=== PATIENT | male | born 2000 | race Asian ===

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

== ENCOUNTER 2019-05-30 08:32 | Emergency (ER) | payer BC ==
--- OUTSIDE RECORDS SUMMARY | 2019-05-30 08:40 | XMS REPORT | Summary of Care ---
:2000 Author Organization [facility] Address [address] [place] [address] Care Team Providers Name Role Phone Bri Lindsey MD Primary Care Provider Reason for Visit Reason Comments Medication Check study abroad for 2 weeks Encounter Details Date Type Department Care Team Description 04/16/2019 Office Visit [facility] C[facility]ar Travel advice encounter ( Primary Dx); Practice Bri Brewer MD Hx MRSA infection [address] [place] [address] [place] [address] [phone] Allergies No Known Allergiesdocumented as of this encounter (statuses as of 04/16/2019) Medications Medication Sig Dispensed Refills Start Date End Date Status Clindamycin HCl 300 MG Take 1 Cap by 30 Cap 0 04/16/2019 04/26/2019 Active Oral CapIndications: mouth THREE Hx MRSA infection TIMES DAILY for 10 days. 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 documented as of this encounter (statuses as of 04/16/2019) Immunizations Name Administration Dates Next Due DTAP Vaccine 03/13/2013, 05/06/2004, 05/30/2000, 03/14/2000, 01/18/2000 HIB 05/30/2000, 03/14/2000, 01/18/2000 Hepatitis A Vaccine Peds 05/18/2016 Hepatitis A Vaccine-Adult 09/04/2018 Hepatitis B Vaccine 03/13/2003, 05/30/2000, 1999 Human Papillomavirus 05/18/2016, 11/18/2014, 09/18/2014 Influenza (IM) Preservative Free 01/14/2019, 02/20/2016 MENINGOCOCCAL CONJUGATE VACCINE 05/18/2016 MMR VACCINE 05/06/2004, 12/14/2000 Pneumococcal Conjugate(13 Valent) 05/30/2000, 03/14/2000, 01/18/2000 Polio - Inactivated Vaccine 05/06/2004, 12/14/2000, 03/14/2000, 01/18/2000 TDAP Vaccine 12/15/2011 Varicella Vaccine Live 12/08/2012, 03/13/2003 documented as of this encounter Social History Tobacco Use Types Packs/Day Years Used Date Passive Smoke Exposure - Never Smoker Smokeless Tobacco: Never Used Alcohol Use Drinks/Week oz/Week Comments No Sex Assigned at Date Recorded Not on file Job Start Date Occupation Industry Not on file Not on file Not on file Travel History Travel Start Travel End No recent travel history available. documented as of this encounter Last Filed Vital Signs Vital Sign Reading Time Taken Comments Blood Pressure 90/70 04/16/2019 8:00 AM EST Pulse 65 04/16/2019 8:00 AM EST Temperature - - Respiratory Rate - - Oxygen Saturation 99% 04/16/2019 8:00 AM EST Inhaled Oxygen Concentration - - Weight 54.9 kg (121 lb) 04/16/2019 8:00 AM EST Height 162.6 cm (5' 4") 04/16/2019 8:00 AM EST Body Mass Index 20.77 04/16/2019 8:00 AM EST documented in this encounter Patient Instructions Patient InstructionsBri Lindsey MD - 04/16/2019 8:00 AM ESTStart your typhoid vaccine: 1 capsule every other day for 4 doses. I sent in clindamycin should you need it for infection. Take over the counter medications for diarrhea, motion sickness, such as imodium , Dramamine, also tylenol, Bacitracin, insect repellant. Drink bottled water. Be safe. 8: 18 AM EST documented in this encounter Progress Notes Bri Lindsey MD - 04/16/2019 8:00 AM EST Nursing Notes: Kaylen Mason LPN 04/16/2019 8:09 AM Signed Chief Complaint Patient presents with Medication Check study abroad for 2 weeks Chief Complaint: Mikal Hernandez is a 18-y.o. male who presents for study abroad paperwork,but I did this in December for him. He just wants to check in prior to travel and would like clinda should his mrsa return. History of Present Illness/ROS: Planning May studies in [place] [facility], in [place] [facility] [place]--no malaria reported there We reviewed his immunizations and CDC travel vaccination recommendations last visit in December. Per CDC: Typhoid vaccine is recommended, Anguillan encephalitis if staying over a month. Yellow fever in endemic areas (not available), rabies if working with animals Antimalarials recommended for travelers to malaria risk areas: Present throughout the country, including [facility]. None in the city of [facility] or at the [facility]. More details. He tells me the study program tole him he does not need malaria prophylaxis where they will be, primarily [facility] Leg infection was treated last August 2018, mrsa. He has had a recurrent infection in than leg in the past, worries about mrsa. Review of Systems - General ROS: negative for - chills or fever, unexpected weight changes ENT ROS: negative for - headaches, nasal congestion, nasal discharge, sinus pain , sore throat or visual changes Respiratory ROS: negative for - cough, hemoptysis or shortness of breath Cardiovascular ROS: negative for - chest pain, dyspnea on exertion, edema or palpitations Gastrointestinal ROS: no abdominal pain, change in bowel habits, or black or bloody stools Genito-Urinary ROS: no dysuria, trouble voiding, or hematuria Neuro: denies headache, focal weakness, numbness Psych: Denies depression Past Medical History: Diagnosis Date Facial 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 trauma 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 Past Surgical History: Procedure Laterality Date UT DRAIN SKIN ABSCESS COMPLIC Left left Lower leg, mrsa Current Outpatient Medications: Clindamycin HCl 300 MG Oral Cap, Take 1 Cap by mouth THREE TIMES DAILY for 10 days., Disp: 30 Cap, Rfl: 0 No Known Allergies Social History Socioeconomic History Marital status: Single Spouse name: Not on file Number of children: Not on file Years of education: Not on file Highest education level: Not on file Occupational History Not on file Social Needs Financial resource strain: Not on file Food insecurity Worry: Not on file Inability: Not on file Transportation needs Medical: Not on file Non-medical: Not on file Tobacco Use Smoking status: Passive Smoke Exposure - Never Smoker Smokeless tobacco: Never Used Substance and Sexual Activity Alcohol use: No Drug use: No Sexual activity: Never Lifestyle Physical activity Days per week: Not on file Minutes per session: Not on file Stress: Not on file Relationships Social connections Talks on phone: Not on file Gets together: Not on file Attends hoahaoism service: Not on file Active member of club or organization: Not on file Attends meetings of clubs or organizations: Not on file Relationship status: Not on file Intimate partner violence Fear of current or ex partner: Not on file Emotionally abused: Not on file Physically abused: Not on file Forced sexual activity: Not on file Other Topics Concern Back Care Not Asked Bike Helmet Not Asked Blood Transfusions Not Asked Caffeine Concern Not Asked Exercise Yes Hobby Hazards Not Asked International Travel Not Asked Service Not Asked Occupational Exposure Not Asked Seat Belt Not Asked Self-Exams Not Asked Sleep Concern Not Asked Special Diet Yes Stress Concern Not Asked Weight Concern Not Asked Social History Narrative Senior in , graduating and going to [employer] in Fall Lives with 3 brothers, 1 sister and parents Family History Problem Relation Age of Onset Heart Father ? No Known Problems Sister No Known Problems Brother Diabetes No family history Cancer No family history Immunization History Administered Date(s) Administered DTAP Vaccine 01/18/2000, 03/14/2000, 05/30/2000, 05/06/2004, 03/13/2013 HIB 01/18/2000, 03/14/2000, 05/30/2000 Hepatitis A Vaccine Peds 05/18/2016 Hepatitis A Vaccine-Adult 09/04/2018 Hepatitis B Vaccine 1999, 05/30/2000, 03/13/2003 Human Papillomavirus 09/18/2014, 11/18/2014, 05/18/2016 Influenza (IM) Preservative Free 02/20/2016, 01/14/2019 MENINGOCOCCAL CONJUGATE VACCINE 05/18/2016 MMR VACCINE 12/14/2000, 05/06/2004 Pneumococcal Conjugate(13 Valent) 01/18/2000, 03/14/2000, 05/30/2000 Polio - Inactivated Vaccine 01/18/2000, 03/14/2000, 12/14/2000, 2004 TDAP Vaccine 12/15/2011 Varicella Vaccine Live 03/13/2003, 12/08/2012 PHYSICAL EXAMINATION: BP 90/70 (BP Location: Left arm, Patient Position: Sitting) | Pulse 65 | Ht 5 ' 4" (1.626 m) | Wt 121 lb (54.9 kg) | SpO2 99% | BMI 20.77 kg/m Physical Examination: General appearance - alert, well appearing, and in no distress Mental status - alert, oriented to person, place, and time, normal mood, behavior, speech, dress, motor activity, and thought processes Eyes -sclera anicteric Chest/Lungs - clear to auscultation, no wheezes, rales or rhonchi, symmetric air entry, good aeration Heart - normal rate, regular rhythm, normal S1, S2, no murmurs, rubs, clicks or gallops Neurological - alert, oriented, normal speech, no gross focal findings or movement disorder noted Extremities - dorsalis pedis pulses normal, no pedal edema, no clubbing or cyanosis Left lateral lower leg: well healed, scared from prior wound infection. Resolved. ASSESSMENT/PLAN: ICD-9-CM ICD-10-CM 1. Travel advice encounter V65.49 Z71.84 2. Hx MRSA infection V12.04 Z86.14 Clindamycin HCl 300 MG Oral Cap Patient Instructions Start your typhoid vaccine: 1 capsule every other day for 4 doses. I sent in clindamycin should you need it for infection. Take over the counter medications for diarrhea, motion sickness, such as imodium , Dramamine, also tylenol, Bacitracin, insect repellant. Drink bottled water. Be safe. Author: Bri Lindsey MD 04/16/2019 08:31 documented in this encounter Plan of Treatment Health Maintenance Due Date Last Done Comments DEPRESSION SCREENING 09/05/2019 09/04/2018 DTaP/Tdap/Td Vaccines (7 - 03/13/2023 03/13/2013, 12/15/2011, Tdap) 05/06/2004, Additional history exists PNEUMOCOCCAL 0-64 YRS Aged Out 05/30/2000, 03/14/2000, No longer eligible 01/18/2000 based on patient's age to complete this topic HPV IMMUNIZATION SERIES Completed 05/18/2016, 11/18/2014, 09/18/2014 MENINGOCOCCAL VACCINE IMM Completed 05/18/2016 HEPATITIS A IMMUNIZATION Completed 09/04/2018, 05/18/2016 SERIES INFLUENZA VACCINE Completed 01/14/2019, 02/20/2016 documented as of this encounter Results Not on filedocumented in this encounter Visit Diagnoses Diagnosis Hx MRSA infection Personal history of Methicillin resistant Staphylococcus aureus Travel advice encounter documented in this encounter Insurance Payer Benefit Plan / Subscriber ID Effective Dates Phone Address Type Group [facility] xxxxxxxxxxxx 2018-Present [employer] documented as of this encounter
[2019-05-30 08:53] VITALS: BP 98/59
[2019-05-30 09:39] LABS: Influenza A Molecular POSITIVE (Negative)
[2019-05-30] MEDS ORDERED: Ibuprofen TAB* 600 MG PO ONE (10:35)
--- NOTE | 2019-05-30 10:37 | UC ---
FLU HPI - HPI Summary HPI Summary: 1. YESTERDAY WHILE AT WORK CLEANING A BATHROOM HE STOOD UP AND STRUCK THE LEFT SIDE OF HIS HEAD ON A METAL TOWEL DISPENSER ON THE WALL. NO LOC. SUSTAINED A MILD ABRASION. LATER DEVELOPED SOME HEADACHE AND DIZZINESS. NO NAUSEA/ VOMITING. UNKNOWN DATE OF LAST TETANUS. 2. YESTERDAY ALSO DEVELOPED FEVER IN ADDITION TO HIS HEADACHE AND DIZZINESS. HAS COUGH AND CONGESTION. UP-TO-DATE FLU SHOT. 3. AFTER STRIKING HIS HEAD HE THINKS HE ALEX HIS JAW WELL AND IS NOW COMPLAINING OF LEFT UPPER AND LOWER DENTAL PAIN. PATIENT DOES NOT SEE A DENTIST. NO SWELLING OR DRAINAGE. - History of Current Complaint Chief Complaint: UCHeadInjury Stated Complaint: BUMP ON HEAD,FEVER,DIZZINESS Time Seen by Provider: 05/30/19 08:57 Hx Obtained From: Patient Onset/Duration: Sudden Onset, Lasting Hours, Lasting Weeks Severity Currently: Moderate Severity Initially: Moderate Pain Intensity: 8 Pain Scale Used: 0-10 Numeric Associated Signs & Symptoms: Positive: Fever, Cough, Nasal Congestion, Headache - Allergy/Home Medications Allergies/Adverse Reactions: Allergies Allergy/AdvReac Type Severity Reaction Status Date / Time No Known Allergies Allergy Verified 05/30/19 08:55 PMH/Surg Hx/FS Hx/Imm Hx - Additional Past Medical History Additional PMH: CONGENITAL LEFT BELLS PALSY - Surgical History Surgical History: None - Family History Known Family History: Positive: Other - younger brother - asthma - Social History Alcohol Use: None Substance Use Type: None Smoking Status (MU): Never Smoked Tobacco - Immunization History Most Recent Influenza Vaccination: unk Most Recent Pneumonia Vaccination: never Review of Systems All Other Systems Reviewed And Are Negative: Yes Constitutional: Positive: Fever, Chills, Fatigue ENT: Positive: Nasal Discharge Respiratory: Positive: Cough Cardiovascular: Positive: Negative Gastrointestinal: Positive: Negative Genitourinary: Positive: Negative Neurological: Positive: Headache Physical Exam Triage Information Reviewed: Yes Appearance: Well-Appearing, No Pain Distress, Well-Nourished Vital Signs: Initial Vital Signs Temp 101.8 F 05/30/19 08:42 Pulse 116 05/30/19 08:42 Resp 18 05/30/19 08:42 BP 98/59 05/30/19 08:42 Pulse Ox 96 05/30/19 08:42 Laboratory Tests 05/30/19 09:36 Influenza A (Rapid) Positive A Vital Signs Reviewed: Yes Eyes: Positive: Conjunctiva Inflamed - MILD INJECTION LEFT EYE - BASELINE DUE TO DOMINGO'S ENT: Positive: Hearing grossly normal, Pharynx normal, TMs normal Neck: Positive: Supple, Nontender, No Lymphadenopathy Respiratory Exam: Normal Cardiovascular: Positive: Tachycardia Abdomen Description: Positive: Nontender, Soft Musculoskeletal: Positive: No Edema Neurological: Positive: Alert, Other: - LEFT SIDED FACIAL DROOP Psychological: Positive: Age Appropriate Behavior Skin: Negative: Rashes Flu Course/Dx - Course Course Of Treatment: PATIENTS HEAD INJURY SEEMS MINOR AT PRESENT. HE HAS A SMALL ABRASION TO THE LEFT SIDE OF HIS HEAD. TETANUS UPDATED TODAY. HIS HEADACHE AND DIZZINESS ARE LIKELY ALSO CONTRIBUTED TO BY HIS POSITIVE FLU STATUS. NO INDICATION FOR NEUROIMAGING TODAY. WILL COVER WITH TAMIFLU TWICE DAILY FOR 5 DAYS. ENCOURAGED REST, HYDRATION, OTC MEDICATIONS NEEDED FOR DISCOMFORT. PATIENT STRONGLY ADVISED TO FOLLOW-UP WITH A DENTIST WELL. HE MAY HAVE ALEX HIS JAW WHEN HE STRUCK HIS HEAD WHICH HAS LED TO SOME DENTAL PAIN. NO CLEAR FRACTURES. I'M CONCERNED ABOUT HOW CROWDED HIS TEETH ARE AND I FEEL THIS MAY BE CONTRIBUTING TO HIS INTERMITTENT DISCOMFORT. LIST OF LOCAL DENTISTS AND ORAL SURGEONS PROVIDED. - Differential Dx/Diagnosis Provider Diagnosis: Head injury, Influenza A, Pain, dental Discharge ED - Sign-Out/Discharge Documenting (check all that apply): Patient Departure All imaging exams completed and their final reports reviewed: No Studies - Discharge Plan Condition: Stable Disposition: HOME Prescriptions: Chlorhexidine MW 0.12% 473ML* [Peridex Mouth Wash 0.12%*] 15 ml SWISH SPIT BID # 1 bottle Oseltamivir CAP* [Tamiflu CAP*] 75 mg PO BID #10 cap Patient Education Materials: Influenza (ED), Head Injury (ED), Toothache (ED) Forms: *Work Release Referrals: Bri Lindsey MD [Primary Care Provider] - If Needed Additional Instructions: 1. YOUR HEAD INJURY SEEMS MINOR. NO ACUTE INTERVENTION INDICATED AT PRESENT. GO TO THE ED WITHOUT FAIL IF YOU DEVELOP UNEQUAL PUPILS, VISUAL DISTURBANCE, GAIT INSTABILITY, SPEECH DIFFICULTY, NAUSEA/VOMITING, WORSENING HEADACHE, DIZZINESS, CONFUSION, WEAKNESS OR ANY OTHER CONCERNING SYMPTOMS. TETANUS IMMUNIZATION GIVEN (TDAP): You have been given an immunization against tetanus. Please record this in your records. In general, a booster is needed only once every 10 years. The tetanus shot protects against tetanus or "lockjaw," which is a complication of certain wound infections (the tetanus shot cannot protect against the actual infection). The immunization site may become warm and red due to local reaction. If this occurs, apply warm compresses and take aspirin or ibuprofen to reduce inflammation and discomfort. Return for evaluation if the reaction becomes severe. 2. SWAB POSITIVE FOR INFLUENZA A. TAMIFLU TWICE DAILY FOR 5 DAYS. OTC MEDS NEEDED FOR FEVER, BODY ACHES. STAY WELL HYDRATED AND RESTED. SEEK FOLLOW-UP IF YOU ARE NOT IMPROVING EXPECTED. 3. YOUR TEETH ARE CROWDED WHICH CAN LEAD TO PAIN. YOU NEED TO SEE A DENTIST AND PERHAPS AN ORAL SURGEON TO CORRECT THIS. RINSE YOUR MOUTH WITH WATER AFTER EATING OR DRINKING ANYTHING. ANTISEPTIC MOUTH RINSE TWICE DAILY. TAKE IBUPROFEN NEEDED FOR PAIN. FOLLOW-UP WITH A DENTIST MAHAD. IBUPROFEN MAX DOSE: 600MG (3 TABS) EVERY 6 HRS OR 800MG (4 TABS) EVERY 8 HRS OR NAPROXEN MAX DOSE: 440MG (2 TABS) EVERY 12 HRS TYLENOL MAX DOSE: 1000MG (2 EXTRA STRENGTH TABS) EVERY 8 HRS OR 650MG (2 REGULAR TABS) EVERY 6 HRS DENTISTS [facility] DDS Dentist Office [address], [place] [address] Tito Gould, DDS [address], [place] [address] Moses Chavez, Micah.Micah.S. [address], [place] [address] Opens at 8am ORAL SURGERY [facility] Oral Surgery Austin Estrella, DMD [address] [place] [address] [facility] Harley Kimball Jr., Micah.D.S. [address], [address] [place] [address] [facility] Mamadou Kidd, RUS [address], [facility] [place] [address] - Billing Disposition and Condition Condition: STABLE Disposition: Home
[2019-05-30] MEDS ORDERED: Tetan/Diph/Pertus SYR(Tdap)* 0.5 ML SYR(BOOSTRIX) use SYR contains LATEX IM ONE (10:45)
== END 2019-05-30 10:58 | disposition home or self-care (01) ==
LOC: UCEAST 08:32
DX: S09.90XA Unspecified injury of head, initial encounter (principal); J10.1 Influenza due to other identified influenza virus with other respiratory manifestations; Z23 Encounter for immunization; K08.89 Other specified disorders of teeth and supporting structures; W22.8XXA Striking against or struck by other objects, initial encounter; Y93.E5 Activity, floor mopping and cleaning; Y92.89 Other specified places as the place of occurrence of the external cause
CPT/HCPCS: 90715; 96372; 99212; A9270-GY; G0463